=== PATIENT | female | born 1960 | race African-American/Black ===

== ENCOUNTER 2019-01-30 14:44 | Emergency (ER) | payer MEDICARE, OTHER ==
[~2019-01-30] VITALS: Ht 167.6 cm; Wt 85.0 kg
[~2019-01-30 14:44] MED LIST: ALBU90AE INHALATION; AMLO5TAB4 PO; ASPI-817 PO; ATOR-2 PO; BETA50CR5 TP; CLOT30CR35 TOP; LEVO25TA6 PO; LEVO750T8 PO; LORA10TA3 PO; MAGN400T28 PO; METF500T24 PO; METO-429 PO; OMEG-135 PO; OMEP20CA16 PO; OXYB5TAB7 PO; SERT-165 PO; VITA-110 PO
[2019-01-30 14:47] VITALS: Ht 167.6 cm; Wt 85.0 kg
[2019-01-30] MEDS ORDERED: SOD CHLORIDE 0.9% 1,000 ML IV STA (15:08)
[2019-01-30] MEDS ORDERED: METHYLPREDNISOLONE 125 MG INJ IV STA (15:08)
[2019-01-30] MEDS ORDERED: IPRATROPIUM (NEB) 0.5 MG/2.5 ML AMP INH STA ×2 (15:08→16:51)
[2019-01-30] MEDS ORDERED: ALBUTEROL 0.5% (NEB) 2.5 MG/0.5 ML AMP INH STA ×2 (15:08→16:51)
--- NOTE | 2019-01-30 15:28 | ERD ---
ER Documentation Chief Complaint Chief Complaint Complains of SOB and wheezing since yesterday HPI This is a 58-year-old female with a known history of asthma. The patient presents to the emergency department complaining of severe difficulty breathing and shortness of breath since yesterday. The patient had a productive cough. S he said no fevers or shaking or chills. She denies any recent travel or prolonged immobilization. She denies any swelling of her lower extremity's. She states her shortness of breath is similar in nature to her previous asthma exacerbations. She used her inhaler multiple times with no improvement of her symptoms. She never required intubation in the past. Her last asthma exacerbation was 1 month ago. ROS All systems reviewed and are negative except as per history of present illness. Medications Home Meds Reported Medications Albuterol Sulfate* (Ventolin HFA*) 18 Gm Hfa.aer.ad, 2 PUFF INHALATION Q4H, #1 INHALER 01/30/19 Levothyroxine Sodium* (Levothyroxine Sodium*) 200 Mcg Tablet, 200 MCG PO BEFORE BREAKFAST, #30 TAB 01/30/19 [place]-3 Fatty Acids/Fish Oil (Fish Oil 1,000 mg Capsule) 1 Each Capsule, 1 EACH PO BID, CAP 01/30/19 Omeprazole* (Omeprazole*) 20 Mg Capsule.dr, 20 MG PO DAILY, #30 CAP 01/30/19 Loratadine* (Loratadine*) 10 Mg Tablet, 10 MG PO DAILY, #30 TAB 01/30/19 Aspirin* (Aspirin* EC) 81 Mg Tablet.dr, 81 MG PO DAILY, TAB 01/30/19 Amlodipine Besylate* (Norvasc*) 5 Mg Tablet, 5 MG PO DAILY, TAB 01/30/19 Metoprolol Tartrate* (Lopressor*) 50 Mg Tab, 50 MG PO BID, #60 TAB 01/30/19 Oxybutynin Chloride* (Ditropan*) 5 Mg Tab, 5 MG PO TID, TAB 01/30/19 Clonidine Hcl* (Clonidine Hcl*) 0.1 Mg Tab, 0.1 MG PO DAILY, TAB 01/30/19 Furosemide* (Furosemide*) 20 Mg Tablet, 20 MG PO DAILY, #60 TAB 01/30/19 Glimepiride* (Glimepiride*) 4 Mg Tablet, 4 MG PO WITH BREAKFAST, TAB 01/30/19 Sertraline Hcl* (Sertraline Hcl*) 100 Mg Tablet, 150 MG PO DAILY, #30 TAB 01/30/19 Discontinued Reported Medications Metformin Hcl* (Metformin Hcl*) 500 Mg Tablet, 500 MG PO WITH BREAKFAST DINNE, #60 TAB 06/04/18 Magnesium Oxide* (Magnesium Oxide*) 400 Mg Tablet, 400 MG PO DAILY, TAB 06/04/18 Loratadine* (Loratadine*) 10 Mg Tablet, 10 MG PO DAILY, #30 TAB 06/04/18 Levothyroxine Sodium* (Levothyroxine Sodium*) 25 Mcg Tablet, 25 MCG PO BEFORE BREAKFAST, #30 TAB 06/04/18 Clotrimazole* (Lotrimin*) 1%-30 Gm Cream..g., 1 APPLIC TOP BID, TUB 06/04/18 Betamet Diprop/Prop Gly (Betamethasone Dp 0.05% Crm) 50 Gm Cream.gm., 50 GM TP BID 06/04/18 Atorvastatin* (Atorvastatin*) 80 Mg Tablet, 80 MG PO QHS, #30 TAB 06/04/18 Aspirin* (Aspirin* EC) 81 Mg Tablet.dr, 81 MG PO DAILY, TAB 06/04/18 Amlodipine Besylate* (Norvasc*) 5 Mg Tablet, 5 MG PO DAILY, TAB 06/04/18 Albuterol Sulfate (Proair Respiclick) 90 Mcg Aer.pow.ba, 2 PUFF INHALATION Q4 PRN for WHEEZING, #1 BOTTLE 06/04/18 Metoprolol Tartrate* (Lopressor*) 50 Mg Tab, 50 MG PO BID, #60 TAB 06/04/18 [place]-3 Fatty Acids/Fish Oil (Fish Oil 1,000 mg Capsule) 1 Each Capsule, 1 EACH PO BID, CAP 06/04/18 Omeprazole* (Omeprazole*) 20 Mg Capsule.dr, 20 MG PO BID, #60 CAP 06/04/18 Oxybutynin Chloride* (Ditropan*) 5 Mg Tab, 5 MG PO TID, TAB 06/04/18 Sertraline Hcl* (Sertraline Hcl*) 100 Mg Tablet, 150 MG PO DAILY, #30 TAB 06/04/18 Vitamin E* (Vitamin E*) 1,000 Unit Capsule, 1000 UNIT PO DAILY, CAP 06/04/18 Discontinued Scripts Levofloxacin* (Levofloxacin*) 750 Mg Tablet, 750 MG PO Q48H, #7 TAB 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 06/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 Allergies Allergies: Coded Allergies: ibuprofen (Verified Allergy, Unknown, 01/30/19) PMhx/Soc History of Surgery: Yes Anesthesia Reaction: No Hx Neurological Disorder: No Hx Respiratory Disorders: No Hx Cardiac Disorders: Yes Hx Psychiatric Problems: No Hx Miscellaneous Medical Probl: No Hx Alcohol Use: No Hx Substance Use: No Hx Tobacco Use: No Physical Exam Vitals Vital Signs Date Temp Pulse Resp B/P (MAP) Pulse Ox O2 O2 Flow FiO2 Time Delivery Rate 01/30/19 90 20 98 21 17:26 01/30/19 76 18 177/73 100 High Flow 16:00 (107) 01/30/19 78 20 98 21 15:24 01/30/19 79 20 179/82 100 Room Air 14:50 (114) 01/30/19 99.5 87 20 197/94 96 14:47 (128) Physical Exam Constitutional:Well-developed. Well-nourished. HEENT:Normocephalic. Atraumatic.Pupils were equal round reactive to light. Moist mucous membranes.No tonsillar exudates. Neck: No nuchal rigidity. No lymphadenopathy. No posterior cervical spine tenderness or step-offs. Respiratory: Patient speaking in full complete sentences . Not using accessory muscles of respiration. Diminished breath sounds bilaterally. Cardiovascular: Regular rate regular rhythm.No murmurs. No rubs were appreciated.S1, S2 normal. Distal pulses are palpable 2+ bilaterally. GI: Abdomen was soft. Nontender. Non Distended. No pulsatile abdominal masses or bruits. No rebound. No guarding. Bowel sounds were present and normal. Muscle skeletal: Full range of motion of both the upper and lower extremities bilaterally.Normal muscle tone.No assymetrical calf tenderness or swelling. Skin: No petechia, no purpura. No lesions on the palms or the soles of the feet. No maculopapular rash. NEURO: Patient was alert, awake, orientated x3.No facial droop. Gait observed and normal with no ataxia.Speech had regular rate and rhythm. No focal neurological deficits. Result Diagram: 01/30/19 1512 01/30/19 1512 Results 24 hrs Laboratory Tests Test 01/30/19 15:12 White Blood Count 6.6 10^3/ul Red Blood Count 4.17 10^6/ul Hemoglobin 12.1 g/dl Hematocrit 37.6 % Mean Corpuscular Volume 90.2 fl Mean Corpuscular Hemoglobin 29.0 pg Mean Corpuscular Hemoglobin Concent 32.2 g/dl Red Cell Distribution Width 13.4 % Platelet Count 220 10^3/UL Mean Platelet Volume 9.4 fl Immature Granulocytes % 0.200 % Neutrophils % 65.6 % Lymphocytes % 23.4 % Monocytes % 7.4 % Eosinophils % 2.6 % Basophils % 0.8 % Nucleated Red Blood Cells % 0.0 /100WBC Immature Granulocytes # 0.010 10^3/ul Neutrophils # 4.3 10^3/ul Lymphocytes # 1.6 10^3/ul Monocytes # 0.5 10^3/ul Eosinophils # 0.2 10^3/ul Basophils # 0.1 10^3/ul Nucleated Red Blood Cells # 0.0 10^3/ul Prothrombin Time 12.0 Sec Prothrombin Time Ratio 0.9 INR International Normalized Ratio 0.88 Activated Partial Thromboplast Time 30.8 Sec Sodium Level 141 mmol/L Potassium Level 3.9 mmol/L Chloride Level 103 mmol/L Carbon Dioxide Level 29 mmol/L Anion Gap 9 Blood Urea Nitrogen 16 mg/dl Creatinine 1.67 mg/dl Est Glomerular Filtrat Rate mL/min 38 mL/min Glucose Level 114 mg/dl Calcium Level 9.8 mg/dl Total Bilirubin 0.3 mg/dl Direct Bilirubin 0.00 mg/dl Indirect Bilirubin 0.3 mg/dl Aspartate Amino Transf (AST/SGOT) 25 IU/L Alanine Aminotransferase (ALT/SGPT) 14 IU/L Alkaline Phosphatase 131 IU/L Creatine Kinase 156 IU/L Creatine Kinase Index 0.3 Creatinine Kinase MB (Mass) 0.49 ng/ml Troponin I < 0.012 ng/ml B-Type Natriuretic Peptide 46 PG/ML Total Protein 8.6 g/dl Albumin 4.6 g/dl Globulin 4.00 g/dl Albumin/Globulin Ratio 1.15 Current Medications Medications Dose Sig/[place] Start Time Status Last (Trade) Ordered Route PRN Stop Time Admin Dose Reason Admin Sodium 1,000 ml @ Q1H STAT 01/30/19 DC 01/30/19 Chloride 1,000 mls/hr IV 15:08 01/30/19 15:16 16:07 Albuterol 10 mg ONCE STAT 01/30/19 DC 01/30/19 (Proventil INH 15:08 01/30/19 15:22 0.5% (Neb)) 15:11 Ipratropium 1 mg ONCE STAT 01/30/19 DC 01/30/19 [place] INH 15:08 01/30/19 15:21 (Atrovent 15:11 0.02% (Neb)) 125 mg ONCE STAT 01/30/19 DC 01/30/19 Methylprednis IV 15:08 01/30/19 15:16 olone Sodium 15:11 Succinate (Solu-Medrol) Albuterol 10 mg ONCE STAT 01/30/19 DC 01/30/19 (Proventil INH 16:51 01/30/19 17:22 0.5% (Neb)) 16:52 Ipratropium 1 mg ONCE STAT 01/30/19 DC 01/30/19 [place] INH 16:51 01/30/19 17:22 (Atrovent 16:52 0.02% (Neb)) Procedures/MDM The patient presented to the emergency department with shortness of breath. My differential diagnosis included but was not limited to upper airway obstruction, CHF, pulmonary embolism, cardiac ischemia, pneumonia, pneumothorax, anemia, drug overdose, pulmonary edema, COPD or asthma. 12 Lead EKG tracing ordered and reviewed by myself showed: Normal sinus rhythm of 99 bpm and no arrhythmia. AK interval normal. QRS duration normal. No ST segment elevation No ST segment depression. No changes consistent with acute ischemia. I obtained a 1 view chest radiograph were reviewed by myself as well as the radiologist which indicated the followin. Cardiomegaly and minimal pulmonary vascular congestion. 2. Prominent central pulmonary arteries, could be seen in the setting of pulmonary tension. The patient's BNP was normal and I did not feel this was a result of congestive heart failure. The patient has a known history of asthma. She was treated with IV steroids and 2 continuous nebulizer treatments. No severe electrolyte abnormalities. No leukocytosis. Observation Note: Time: 4 hours Family Hx: No Hypertension Evaluation: Multiple exams showed improving symptoms and no evidence of hypoxia or worsening of her symptoms. She had repeat physical examinations performed by myself. She is now speaking in full complete sentences and lungs were clear to auscultation bilaterally. Patient was also hypertensive upon arrival to the emergency department there is no signs of endorgan damage to suggest hypertensive emergency or urgency. I felt the hypertension was exacerbated by her severe dyspnea. Her blood pressure had improved after her dyspnea and improved and she did not require any antihypertensive medication. Departure Diagnosis: Primary Impression: Asthma exacerbation Asthma severity: moderate Asthma persistence: unspecified Qualified Codes: J45.901 - Unspecified asthma with (acute) exacerbation Condition: Fair RUPA POWELL MD January 30, 2019 15:28
[2019-01-30] MEDS ORDERED: SERT-165 PO (16:04)
[2019-01-30] MEDS ORDERED: GLIM4TAB PO (16:04)
[2019-01-30] MEDS ORDERED: FURO20TA3 PO (16:05)
[2019-01-30] MEDS ORDERED: CLON-379 PO (16:06)
[2019-01-30] MEDS ORDERED: OXYB5TAB7 PO (16:09)
[2019-01-30] MEDS ORDERED: METO-429 PO (16:10)
[2019-01-30] MEDS ORDERED: AMLO5TAB4 PO (16:11)
[2019-01-30] MEDS ORDERED: ASPI-817 PO (16:12)
[2019-01-30] MEDS ORDERED: LORA10TA3 PO (16:12)
[2019-01-30] MEDS ORDERED: OMEP20CA16 PO (16:12)
[2019-01-30] MEDS ORDERED: OMEG-135 PO (16:13)
[2019-01-30] MEDS ORDERED: ALBU18HF INHALATION (16:14)
[2019-01-30] MEDS ORDERED: LEVO200T6 PO (16:14)
[2019-01-30] MEDS ORDERED: PRED50TA PO (18:05)
[2019-01-30] MEDS ORDERED: ALBU8.5H8 INH (18:05)
[2019-01-30 19:22] VITALS: BP 142/69; PULSE 108; RESP 20
== END 2019-01-30 19:27 | disposition home or self-care (01) ==
LOC: E/R 14:44
DX: J45.901 Unspecified asthma with (acute) exacerbation (principal); I10 Essential (primary) hypertension; Z79.82 Long term (current) use of aspirin; Z79.84 Long term (current) use of oral hypoglycemic drugs
CPT/HCPCS: 71045; 80053; 82550; 82553; 83880; 84484; 85025; 85610; 85730; 93005; 94644; 94645; 96374; 99285; J2930; J7030